=== PATIENT | male | born 1990 | race Two or more races ===

== ENCOUNTER 2019-01-11 14:47 | Emergency (ER) | payer SELFPAY ==
[~2019-01-11] VITALS: Ht 177.8 cm; Wt 99.8 kg
[2019-01-11 14:52] VITALS: BP 153/107
[2019-01-11] MEDS ORDERED: DIPHTH,PERTUSS(ACELL),TET TOX 0.5 ML DISP.SYRIN. VAX IM ONE (15:15)
--- NOTE | 2019-01-11 15:26 | PHYS DOC ---
Past Medical History Past Medical History: No Pertinent History Past Surgical History: No Surgical History Alcohol Use: Heavy Additional Information: PATIENT DRINKS 6 BEERS PER NIGHT Drug Use: None Adult General Chief Complaint Chief Complaint: SHOULDER INJURY HPI HPI Patient is a 29 year old male with no significant medical history who presents to the ED today complaining of 7 out of 10 throbbing right shoulder pain that began yesterday after he fell down 5 steps. Patient denies any loss of consciousness. Denies any neck pain. Denies hitting his head on the ground. He states there was glass somewhere along the pathway of where he fell that broke and he thinks he could've gotten into his eyes. Denies any vision loss. Review of Systems Review of Systems Constitutional: Denies fever or chills [] Eyes: Reports possible foreign object in bilateral eyes. Denies change in visual acuity, redness, or eye pain [] HENT: Denies nasal congestion or sore throat [] Respiratory: Denies cough or shortness of breath [] Cardiovascular: No additional information not addressed in HPI [] GI: Denies abdominal pain, nausea, vomiting, bloody stools or diarrhea [] : Denies dysuria or hematuria [] Musculoskeletal: Reports right shoulder pain Integument: Denies rash or skin lesions [] Neurologic: Denies headache, focal weakness or sensory changes [] All other systems were reviewed and found to be within normal limits, except as documented in this note. Current Medications Current Medications Current Medications Medications (Trade) Dose Ordered Sig/Angel Start Time Stop Time Status Last Admin Dose Admin Diphtheria/ Tetanus/Acell Pertussis (Boostrix) 0.5 ml ONCE ONCE 01/11/19 15:15 01/11/19 15:19 DC 01/11/19 15:23 0.5 ML Fluorescein Sodium (Ful-Katherine) 1 strip 1X ONCE 01/11/19 15:30 01/11/19 15:31 DC 01/11/19 15:42 1 STRIP Tetracaine HCl (Tetracaine) 1 drop 1X ONCE 01/11/19 15:30 01/11/19 15:31 DC 01/11/19 15:42 1 DROP Allergies Allergies Allergies Coded Allergies Type Severity Reaction Last Updated Verified No Known Drug Allergies 01/11/19 No Physical Exam Physical Exam Constitutional: Well developed, well nourished, no acute distress, non-toxic appearance. [] HENT: Normocephalic, atraumatic, bilateral external ears normal, oropharynx moist, no oral exudates, nose normal. [] Eyes: PERRLA, EOMI, conjunctiva normal, no discharge. [] Neck: Normal range of motion, no tenderness, supple, no stridor. [] Cardiovascular:Heart rate regular rhythm, no murmur [] Lungs & Thorax: Bilateral breath sounds clear to auscultation [] Abdomen: Bowel sounds normal, soft, no tenderness, no masses, no pulsatile masses. [] Skin: Warm, dry, no erythema, no rash. [] Back: No tenderness, no CVA tenderness. [] Extremities: Right anterior humerus with bruising, tenderness on palpation of right anterior humerus. Full range of motion to the right upper extremity. Adequate radial, medial malleolus is in the right upper extremity. +2 right radial pulse. Cap refill less than 2 seconds the right upper extremity. Neurologic: Alert and oriented X 3, normal motor function, normal sensory function, no focal deficits noted. [] Psychologic: Affect normal, judgement normal, mood normal. [] Current Patient Data Vital Signs Vital Signs Date Time Temp Pulse Resp B/P (MAP) Pulse Ox O2 Delivery O2 Flow Rate FiO2 01/11/19 14:52 98.4 83 14 153/107 (122) 96 98.4 EKG EKG [] Radiology/Procedures Radiology/Procedures []PROCEDURE: HUMERUS RIGHT EXAM: 1. 3 views right number shoulder 2. AP and lateral views the right humerus DATE: 01/11/2019 3:00 PM INDICATION: Fall, right shoulder and arm pain COMPARISON: No Prior FINDINGS: No evidence of acute fracture or dislocation. Joint spaces are preserved without significant degenerative/proliferative change. Humeral head is not high riding. AC joint is congruent. Mild soft tissue swelling about the right shoulder. IMPRESSION: No evidence of acute fracture or dislocation. Electronically signed by: Shaan Redding MD (01/11/2019 3:30 PM) [facility] DICTATED and SIGNED BY: SHAAN REDDING MD DATE: 01/11/19 7991 Course & Med Decision Making Course & Med Decision Making Pertinent Labs and Imaging studies reviewed. (See chart for details) This is a 29-year-old male patient who presents to the ED today with right shoulder pain after falling yesterday. He also believes he got glass in his eyes when he fell. No vision loss. Tetanus up to date. Right shoulder and right humerus x-rays interpreted by radiologist are negative for any acute findings. Bilateral eyes were examined under ambriz lamp, no foreign object noted. Provided customer counter associate for follow-up if symptoms persist. Discharged with diclofenac for shoulder pain. Ice elevation encouraged. Dragon Disclaimer Dragon Disclaimer This electronic medical record was generated, in whole or in part, using a voice recognition dictation system. Departure Departure Impression: Primary Impression: Contusion of right shoulder Additional Impressions: Fall down steps Foreign body, eye Disposition: HOME, SELF-CARE Condition: STABLE Referrals: NO PCP (PCP) MER MATTHEWS MD follow up in one week TRACY HARRIS MD follow up in 1 week if shoulder pain persists Patient Instructions: Contusion, [id number] Additional Instructions: You were evaluated in the emergency room for right shoulder contusion. Ice and elevate the affected extremity. Take the prescribed medication as needed. We provided you an customer counter associate, follow-up with them if you eye symptoms continue. Also follow-up with the provided orthopedic doctor in 1-2 weeks. Scripts Diclofenac Sodium (DICLOFENAC SODIUM) 50 Mg Tablet.dr 1 TAB PO BID, #20 TAB 0 Refills Prov: RUTH AMAYA APRN 01/11/19 Problem Qualifiers Primary Impression: Contusion of right shoulder Encounter type: initial encounter Qualified Codes: S40.011A - Contusion of right shoulder, initial encounter Additional Impressions: Fall down steps Encounter type: initial encounter Qualified Codes: W10.8XXA - Fall (on) (from) other stairs and steps, initial encounter Foreign body, eye Encounter type: initial encounter Laterality: right Qualified Codes: T15.91XA - Foreign body on external eye, part unspecified, right eye, initial encounter RUTH AMAYA APRN Jan 11, 2019 15:26
[2019-01-11] MEDS ORDERED: FLUORESCEIN OPHTH TEST STRIP. OD ONE (15:30)
[2019-01-11] MEDS ORDERED: TETRACAINE 0.5% OPHTH SOLUTION 4ML BOTTLE. OD ONE (15:30)
--- NOTE | 2019-01-11 15:33 | RAD ---
EXAM: 1. 3 views right number shoulder 2. AP and lateral views the right humerus DATE: 01/11/2019 3:00 PM INDICATION: Fall, right shoulder and arm pain COMPARISON: No Prior FINDINGS: No evidence of acute fracture or dislocation. Joint spaces are preserved without significant degenerative/proliferative change. Humeral head is not high riding. AC joint is congruent. Mild soft tissue swelling about the right shoulder. IMPRESSION: No evidence of acute fracture or dislocation. Electronically signed by: Shaan Redding MD (01/11/2019 3:30 PM) [facility]
[2019-01-11] MEDS ORDERED: DICL50TA4 PO (15:55)
== END 2019-01-11 15:59 | disposition home or self-care (01) ==
LOC: ER 14:47
DX: S40.011A Contusion of right shoulder, initial encounter (principal); T15.91XA Foreign body on external eye, part unspecified, right eye, initial encounter; F10.20 Alcohol dependence, uncomplicated; Y90.9 Presence of alcohol in blood, level not specified; W10.9XXA Fall (on) (from) unspecified stairs and steps, initial encounter; Y93.89 Activity, other specified; Y92.89 Other specified places as the place of occurrence of the external cause; Y99.8 Other external cause status
CPT/HCPCS: 73030; 73060; 90471; 90715; 99284